=== PATIENT | male | born 1965 | race Caucasian/White ===

== ENCOUNTER 2017-06-01 22:54 | Emergency (ER) | payer OTHER ==
[~2017-06-01] VITALS: Ht 170.2 cm; Wt 76.8 kg
[~2017-06-01 22:54] MED LIST: ASPIR 8181 M1 PO; BENAZEPRIL HCL40 MG PO; DICLOXACILLIN250 MG PO; INDOCIN25 MG PO; NAPROSYN500 MG PO; NAPROXEN500 MG PO; NORCO 7.5/321 TABLET PO; PAROXETINE HCL20 MG PO; SIMVASTATIN40 MG PO
[2017-06-02 00:02] VITALS: BP 125/87
== END 2017-06-02 00:03 | disposition home or self-care (01) ==
LOC: EME 22:54
PROC: 3E0234Z Introduction of Serum, Toxoid and Vaccine into Muscle, Percutaneous Approach (ICD-10-PCS; principal; 2017-06-01)
DX: S83.92XA Sprain of unspecified site of left knee, initial encounter (principal); F10.129 Alcohol abuse with intoxication, unspecified; S80.212A Abrasion, left knee, initial encounter; S50.812A Abrasion of left forearm, initial encounter; W18.30XA Fall on same level, unspecified, initial encounter; Y93.89 Activity, other specified; Y92.488 Other paved roadways as the place of occurrence of the external cause; Z23 Encounter for immunization; I10 Essential (primary) hypertension; E78.5 Hyperlipidemia, unspecified; F90.9 Attention-deficit hyperactivity disorder, unspecified type; F41.9 Anxiety disorder, unspecified; F32.9 Major depressive disorder, single episode, unspecified; F17.200 Nicotine dependence, unspecified, uncomplicated; Z79.82 Long term (current) use of aspirin
CPT/HCPCS: 73564; 99281; 99283